=== PATIENT | male | born 1960 ===

== ENCOUNTER 2019-02-11 06:43 | Day surgery (SDC) | payer MEDICARE ==
[2019-02-11 07:10] VITALS: BMI 26.0
--- NOTE | 2019-02-11 09:23 | CP.SDSHP ---
Same Day Surgery H & P - History Proposed Procedure: colonoscopy Pre-Op Diagnosis: screening - Allergies Allergies: Allergies No Known Allergies Allergy (Verified 02/11/19 07:09) - Physical Exam General Appearance: NAD Vital Signs: Vital Signs 02/11/19 02/11/19 07:07 07:28 Temperature 97.1 F L 97.1 F L Pulse Rate 77 77 Respiratory 19 19 Rate Blood Pressure 135/96 H 135/96 H O2 Sat by Pulse 100 100 Oximetry Mental Status: Alert & Oriented x3 Neuro: WNL Heart: WNL Lungs: WNL GI: WNL - {Optional Preform as Required} Abdomen: WNL - Impression Pt. Evaluated Today:Candidate for Anesthesia & Procedure: Yes - Date & Time Date: 02/11/19 Time: 09:23 Short Stay Discharge - Short Stay Discharge Admitting Diagnosis/Reason for Visit: SCREENING Disposition: HOME/ ROUTINE
[2019-02-11] MEDS ORDERED: Lactated Ringer's 500 ML IV ONE (09:27)
[2019-02-11] MEDS ORDERED: Propofol 10 mg/ml Inj (20 ML) ONE (09:32)
[2019-02-11 10:49] VITALS: TEMP 98
[2019-02-11 10:58] VITALS: PULSE 70; RESP 20
[2019-02-11 11:01] VITALS: BP 140/90; O2SAT 99
== END 2019-02-11 10:45 | disposition home or self-care (01) ==
LOC: C.ENDO 06:43 → EDSEX 06:43 → C.ENDO 10:45
PROVIDERS: ATTEND Internal Medicine Gastroenterology
DX: Z12.11 Encounter for screening for malignant neoplasm of colon (principal); K64.1 Second degree hemorrhoids
CPT/HCPCS: 45378; J2704; J7120